=== PATIENT | female | born 1980 | race Caucasian/White ===

== ENCOUNTER 2020-11-30 13:23 | Emergency (ER) | payer SELFPAY ==
[~2020-11-30] VITALS: Ht 157.5 cm; Wt 107.0 kg
--- NOTE | 2020-11-30 13:49 | NUR ---
first contact with pt. pt c/o ruq abd pain with nausea since this am. pt stated "i feel like choley" pt's aox4. resps even and unlabored. pt denies cp/sob/v/d. bp/spo2 monitors in place. call light within reach.
[2020-11-30] MEDS ORDERED: HYDROcodone/APAP 5/325 TABLET PO ONE (14:00)
[2020-11-30] MEDS ORDERED: HYDROcodone/APAP 5/325 TABLET ONE (14:03)
--- NOTE | 2020-11-30 14:05 | NUR ---
PT MEDICATED PER EMAR FOR PAIN. PT TOLERATED WELL.
[2020-11-30 14:23] LABS: BASOPHILS % (AUTO) 1 % (0-1); EOSINOPHILS % (AUTO) 2 % (1-7); LYMPHOCYTES % (AUTO) 33 % (22-44); MEAN CORPUSCULAR HEMOGLOBIN 30.2 pg (27.0-34.8); MEAN CORPUSCULAR HGB CONC 33.9 g/dL (32.4-35.8); MEAN PLATELET VOLUME 7.3 fL (7.4-10.4); MONOCYTES % (AUTO) 8 % (2-9); NEUTROPHILS % (AUTO) 56 % (42-75); PLATELET COUNT 292 x10^3/uL (130-400); RED BLOOD COUNT 4.74 x10^6/uL (3.82-5.3); RED CELL DISTRIBUTION WIDTH 13.2 % (9.6-15.2)
[2020-11-30 14:25] LABS: MD NO
[2020-11-30 14:35] LABS: ALANINE AMINOTRANSFERASE 21 U/L (12-78); ALBUMIN 3.7 g/dL (3.4-5.0); ANION GAP 4 mmol/L (5-15); CALCIUM 8.8 mg/dL (8.5-10.1); CHLORIDE 107 mmol/L (98-107)
[2020-11-30 14:38] LABS: ALKALINE PHOSPHATASE 74 U/L (45-117); BILIRUBIN,TOTAL 0.2 mg/dL (0.2-1.0); CREATININE 0.66 mg/dL (0.55-1.02); TOTAL PROTEIN 7.2 g/dL (6.4-8.2)
[2020-11-30 15:45] VITALS: BP 150/78
--- NOTE | 2020-11-30 15:46 | NUR ---
pt c/o pain. pt stated "medication didn't work" edmd notified.
[2020-11-30] MEDS ORDERED: KETOROLAC 30 MG/1 ML ONE (15:50)
--- NOTE | 2020-11-30 15:58 | NUR ---
PT MEDICATED PER EMAR. PT TOLERATED WELL.
[2020-11-30] MEDS ORDERED: KETOROLAC 30 MG/1 ML IM ONE (16:00)
[2020-11-30] MEDS ORDERED: MAALOX/HYOSCYAMINE/LIDOCAINE 45 ML BTL ONE (16:12)
--- NOTE | 2020-11-30 16:25 | NUR ---
PT MEDICATED PER EMAR. PT TOLERATED WELL.
[2020-11-30] MEDS ORDERED: MAALOX/HYOSCYAMINE/LIDOCAINE 45 ML BTL PO ONE (16:30)
--- NOTE | 2020-11-30 17:32 | NUR ---
PT BACK TO ROOM FROM CT AT THIS TIME.
--- NOTE | 2020-11-30 17:53 | NUR ---
this rn went to her room and pt was gone already without dc papers.
== END 2020-11-30 17:54 | disposition left against medical advice (07) ==
LOC: ED 16:23
DX: R10.11 Right upper quadrant pain (principal)
CPT/HCPCS: 36415; 74176; 76700; 80053; 83690; 84703; 85025; 96372; 99285; J1885